=== PATIENT | female | born 1945 | race Caucasian/White ===

== ENCOUNTER 2019-02-11 16:24 | Emergency (ER) | payer MEDICAID ==
[~2019-02-11] VITALS: Ht 165.1 cm; Wt 93.4 kg
--- NOTE | 2019-02-11 16:51 | NUR ---
CP X 10 DAYS; ON AND OFF; PRESSURE-LIKE; RADIATES TO THE LEFT ARM. PT AAOX4, VSS, RR EVEN & UNLABORED. DENIES DIZZINESS, N/V, WEAKNESS, UPPER BACK PAIN @ THIS TIME. SEEN & EVAL'D BY DR. LAU. PLACED ON BRICK UNLOADER TENDER, SB. DAUGHTER @ BS & WILL CONT TO MONITOR.
[2019-02-11 17:06] LABS: BASOPHILS % (AUTO) 0.6 % (0.0-2.0); EOSINOPHILS % (AUTO) 3.4 % (0.0-6.0); HEMATOCRIT 39 % (33-45); HEMOGLOBIN 12.8 g/dL (11.5-14.8); LYMPHOCYTES # (AUTO) 3.1 /CMM (0.8-4.8); LYMPHOCYTES % (AUTO) 47.2 % (20.0-44.0); MEAN CORPUSCULAR HGB CONC 33 g/dl (31.0-36.0); MEAN CORPUSCULAR VOLUME 87 fL (82-100); MONOCYTES # (AUTO) 0.6 /CMM (0.1-1.30); MONOCYTES % (AUTO) 8.5 % (2.0-12.0); NEUTROPHILS # (AUTO) 2.7 /CMM (1.8-8.9); NEUTROPHILS % (AUTO) 40.3 % (43.0-81.0); PLATELET COUNT (AUTO) 204 /CMM (150-450); RED BLOOD CELL COUNT(AUTO) 4.41 MIL/uL (4.0-5.2); WHITE BLOOD COUNT (AUTO) 6.6 K/uL (4.3-11.0)
[2019-02-11 17:11] LABS: CARBON DIOXIDE 26 mmol/L (21-32); CHLORIDE 106 mmol/L (98-107); GLUCOSE 104 mg/dL (74-106); POTASSIUM 4.1 mmol/L (3.5-5.1); SODIUM SERUM 142 mmol/L (136-145); UREA NITROGEN, BLOOD 13 mg/dL (7-18)
[2019-02-11 17:54] VITALS: BP 116/87
--- NOTE | 2019-02-11 17:55 | NUR ---
Patient discharged to home in stable condition. Written and verbal after care instructions given. Patient verbalizes understanding of instruction. IV removed. Catheter intact and site benign. Pressure and 4x4 applied to site. No bleeding noted.
== END 2019-02-11 17:55 | disposition home or self-care (01) ==
LOC: ER 16:31
DX: R07.89 Other chest pain (principal); E78.5 Hyperlipidemia, unspecified
CPT/HCPCS: 36415; 71045-TC; 80048-TC; 84484-TC; 85025-TC

== ENCOUNTER 2019-03-29 19:27 | Inpatient (IN) | payer OTHER ==
[~2019-03-29] VITALS: Ht 162.6 cm; Wt 94.5 kg
--- NOTE | 2019-03-29 19:49 | NUR ---
1934: BIBDAUGHTER FROM HOME TO ER BED 8. MACEDONIAN SPEAKING WITH DAUGHTER TRANSLATING. AAOX4. NO RESP DISTRESS NOTED EVEN AND UNLABORED BREATHING. AMBULATORY W/O ASSIST. C/O L SIDED NUMBNESS AND HEADACHE. PT REPORTS THAT NUMBNESS STARTED 3 DAYS AGO. SHE REPORTS THAT SALIVA KEEPS DRIPPING ON THE L SIDE OF LIP AND CANT HOLD IT IN. HEAD ACHE IS REPORTED ON THE R SIDE. MD IS AT BEDSIDE FOR EVAL. UPON ASSESSING, NO VISUAL GAZE DEFICIT, REPORTS NO VISUAL DEFICIT, EVEN SMILE,NO NOTED DRIFT ON BOTH UPPER AND LOWER EXTREMETIES HOWEVER SENSATION ON THE LEFT SIDE IS LESS THAN THE RIGHT SIDE OF THE BODY. ORDERS RECEIVED, NOTED AND CARRIED OUT
[2019-03-29 19:55] LABS: BASOPHILS % (AUTO) 0.5 % (0.0-2.0); EOSINOPHILS % (AUTO) 4.2 % (0.0-6.0); HEMATOCRIT 39 % (33-45); HEMOGLOBIN 12.9 g/dL (11.5-14.8); LYMPHOCYTES # (AUTO) 3.1 /CMM (0.8-4.8); LYMPHOCYTES % (AUTO) 53.1 % (20.0-44.0); MEAN CORPUSCULAR HGB CONC 33 g/dl (31.0-36.0); MEAN CORPUSCULAR VOLUME 88 fL (82-100); MONOCYTES # (AUTO) 0.7 /CMM (0.1-1.30); MONOCYTES % (AUTO) 12.1 % (2.0-12.0); NEUTROPHILS # (AUTO) 1.8 /CMM (1.8-8.9); NEUTROPHILS % (AUTO) 30.1 % (43.0-81.0); PLATELET COUNT (AUTO) 205 /CMM (150-450); RED BLOOD CELL COUNT(AUTO) 4.45 MIL/uL (4.0-5.2); WHITE BLOOD COUNT (AUTO) 5.8 K/uL (4.3-11.0)
[2019-03-29] MEDS ORDERED: IV NS 0.9% 500 ML BAG IV ONE (20:00)
[2019-03-29 20:10] LABS: ALANINE AMINOTRANSFERASE 23 U/L (12-78); ALBUMIN 3.7 g/dL (3.4-5.0); ALKALINE PHOSPHATASE 83 U/L (46-116); ASPARTATE AMINOTRANSFERASE 21 U/L (15-37); BILIRUBIN,DIRECT 0.1 mg/dL (0.0-0.2); BILIRUBIN,TOTAL 0.4 mg/dL (0.2-1.0); CALCIUM, SERUM 9.5 mg/dL (8.5-10.1); CARBON DIOXIDE 26 mmol/L (21-32); CHLORIDE 106 mmol/L (98-107); CREATININE 0.9 mg/dL (0.6-1.3); GLUCOSE 110 mg/dL (74-106); POTASSIUM 4.2 mmol/L (3.5-5.1); SODIUM SERUM 141 mmol/L (136-145); TOTAL PROTEIN, SERUM 7.3 g/dL (6.4-8.2); UREA NITROGEN, BLOOD 11 mg/dL (7-18)
[2019-03-29] MEDS ORDERED: IOHEXOL-350 100 ML VIAL IV ONE (20:17)
[2019-03-29] MEDS ORDERED: CT SWABBABLE VALVE TRANS SET 1 EA INFUS.SET MC ONE (20:18)
[2019-03-29] MEDS ORDERED: IV NS 0.9% 250 ML IV ONE (20:18)
--- NOTE | 2019-03-29 20:24 | NUR ---
PT BROUGHT TO CT
[2019-03-29 20:46] LABS: CHOLESTEROL 184 mg/dL (<200); HDL CHOLESTEROL 52 mg/dL (40-60); LDL 109 mg/dL (0-99); TRIGLYCERIDES 115 mg/dL (30-150)
--- NOTE | 2019-03-29 21:40 | NUR ---
PT AMBULATED TO RESTROOM WITHOUT ASSISTANCE
--- NOTE | 2019-03-29 21:48 | NUR ---
SPOKE WITH [facility] NEPHROLOGY SOCIAL WORKER ([place]) [phone]. PT CAPITATED TO [facility]. WILL CALL BACK FOR MD TO
--- NOTE | 2019-03-29 21:50 | NUR ---
Patient is resting comfortably in bed with eyes closed. Easily aroused. VSS
[2019-03-29] MEDS ORDERED: ASPIRIN 325 MG TABLET PO ONE (22:00)
[2019-03-29] MEDS ORDERED: ASPIRIN 325 MG TABLET ONE (22:05)
--- NOTE | 2019-03-29 23:04 | NUR ---
BED ASSIGNMENT 313-2
--- NOTE | 2019-03-29 23:18 | NUR ---
GAVE REPORT TO MILLY IVY FOR JERAMY
[2019-03-29 23:40] VITALS: BP 141/74
--- NOTE | 2019-03-29 23:40 | NUR ---
PT TRANSFERED PER ACLS PROTOCOL.
[2019-03-29 23:50] VITALS: BP 141/74
--- NOTE | 2019-03-29 23:50 | NUR ---
formation fracturing operatoradmissions director notes Received Pt from ER nurse BIJU Uriarte. Pt arrived at the unit at 2335 with a gurney and ACLS protocol. Pt is 73 YO Female with a diagnose of CVA r/o by Dr. Hernandez. Pt is alert and oriented x3. Pt speaks Austrian and able to make needs known. Respiration is normal. No Nausea or vomiting. Pt is complaining of headache. VS is taken. Tele monitored showed sinus tammy 58. Blood sugar is 91. Pt has left upper and lower weakness. Pt is able to ambulate with administrative services assistant. Skin assessment is done and performed and documented under initial admission. Pt refused skin pictures taken. Pt's daughter Ananya is aware and informed. Pt's belongings was checked by DANIEL Jenkins. Robinson and educate Pt to the room, and the use of call light button for assistance. Pt's verbalize understanding. Admission orders is received from Dr. Hernandez. Orders carried out. Instructed to call. Safety precautions is maintained. Bed at low position, brakes locked, side rails upX2 and call light is within reach. Will continue to monitor.
--- NOTE | 2019-03-29 23:50 | NUR ---
household appliances service technician notes Pt passed nursing swallow eval. Pt tolerated activity well. Charge nurse BIJU Santos is aware and informed. Will continue to monitor.
[2019-03-30] MEDS ORDERED: HYDROCODONE/APAP 5/325MG 1 EACH TABLET PO PRN
[2019-03-30] MEDS ORDERED: MAGNESIUM HYDROXIDE 30 ML UDC PO PRN
[2019-03-30] MEDS ORDERED: ONDANSETRON HCL/PF 4 MG/2 ML VIAL IVP PRN
[2019-03-30] MEDS ORDERED: ZOLPIDEM TARTRATE 5 MG TABLET PO PRN
[2019-03-30] MEDS ORDERED: Z GUARD REMEDY 2 OZ OINT TP PRN
[2019-03-30] MEDS ORDERED: MAG HYDROX/AL HYDROX/SIMETH 30 ML UDC PO PRN
[2019-03-30] MEDS ORDERED: ACETAMINOPHEN 325 MG TABLET ONE (00:09)
[2019-03-30] MEDS: BLOOD SUGAR DIAGNOSTIC 1 EACH STRIP IN SCH ×7 (00:11→21:14)
[2019-03-30] MEDS: ACETAMINOPHEN 325 MG TABLET PO PRN ×3 (00:11→21:16)
--- NOTE | 2019-03-30 00:14 | NUR ---
rn staff notes Pt is complaining of pain. Administered Tylenol 325mg/2 tabs/PO as ordered for headache per Pt request. Called [facility] to verify the meds, The [facility] stated the computer system is down. Charge nurse BIJU Santos override the medication because our system is down. Instructed to call. Will continue to monitor.
[2019-03-30 00:20] LABS: CALCIUM, SERUM 8.8 mg/dL (8.5-10.1); POTASSIUM 4.4 mmol/L (3.5-5.1)
[2019-03-30 00:32] LABS: ALBUMIN 3.6 g/dL (3.4-5.0); BILIRUBIN,TOTAL 0.4 mg/dL (0.2-1.0); TOTAL PROTEIN, SERUM 6.8 g/dL (6.4-8.2)
[2019-03-30 00:33] LABS: THYROID STIMULATING HORMONE 2.229 uIU/mL (0.358-3.74)
[2019-03-30 04:00] VITALS: BP 126/69
[2019-03-30 05:39] LABS: APPEARANCE,URINE CLEAR (CLEAR); BILIRUBIN,URINE NEGATIVE (NEGATIVE); BLOOD, URINE NEGATIVE Ery/uL (NEGATIVE); COLOR,URINE YELLOW (YELLOW); KETONES,URINE NEGATIVE (NEGATIVE); LEUKOCYTE ESTERASE ,URINE TRACE (NEGATIVE); NITRITE, URINE NEGATIVE (NEGATIVE); PROTEIN,URINE NEGATIVE (NEGATIVE); UGLUCOSE NEGATIVE (NEGATIVE); UROBILINOGEN,URINE 0.2 EU/dL (0.2)
[2019-03-30 05:50] LABS: BACTERIA,URINE Few /HPF (None Seen); RBC,URINE 0-2 /HPF (0-2); SQUAMOUS EPITHELIAL CELL,UR Few /HPF (None Seen)
--- NOTE | 2019-03-30 06:50 | NUR ---
contract paralegal closing notes Pt is resting in bed comfortably. Awaken easily. Respiration is normal in room air. No SOB. No S/S of distress noted. IV sites at RFA # 20 is clean, intact, patent and SL. VS is stable. Tele monitor showed sinus rhytm 60. Kept Pt clean, dry, warm and comfortable. Instructed to call. Safety precautions is maintained. Bed at low position, brakes locked, side rails upX2 and call light is witihn reach. Will endorse to morning nurse for JERAMY.
[2019-03-30 07:13] LABS: BASOPHILS % (AUTO) 0.4 % (0.0-2.0); EOSINOPHILS % (AUTO) 4.3 % (0.0-6.0); HEMATOCRIT 40 % (33-45); HEMOGLOBIN 13.3 g/dL (11.5-14.8); MEAN CORPUSCULAR HGB CONC 33 g/dl (31.0-36.0); MEAN CORPUSCULAR VOLUME 88 fL (82-100); MONOCYTES # (AUTO) 0.6 /CMM (0.1-1.30); MONOCYTES % (AUTO) 10.6 % (2.0-12.0); NEUTROPHILS # (AUTO) 1.9 /CMM (1.8-8.9); NEUTROPHILS % (AUTO) 32.7 % (43.0-81.0); PLATELET COUNT (AUTO) 207 /CMM (150-450); RED BLOOD CELL COUNT(AUTO) 4.62 MIL/uL (4.0-5.2); WHITE BLOOD COUNT (AUTO) 5.7 K/uL (4.3-11.0)
--- NOTE | 2019-03-30 07:39 | NUR ---
RN Notes Patient resting in bed, semi fowlers position; No facial drooping noted; Patient able to follow commands; Slight weakness on left side, but patient is able to move extremities; Call light within reach.
[2019-03-30 07:45] LABS: CREATININE 1.1 mg/dL (0.6-1.3); MAGNESIUM 1.9 mg/dL (1.8-2.4); PHOSPHORUS 4.1 mg/dL (2.5-4.9); POTASSIUM 4.2 mmol/L (3.5-5.1)
[2019-03-30 08:00] VITALS: BP 135/74
[2019-03-30] MEDS: ASPIRIN EC 325 MG TABLET.DR PO SCH (08:55)
--- NOTE | 2019-03-30 11:00 | NUR ---
RN Notes Patient unable to remember list of medications currently taking at home; Called daughter, Marichuy, to bring list of medications when she visits.
--- NOTE | 2019-03-30 11:24 | NUR ---
RN Notes Patient sent down for MRI w/o contrast with transporter.
--- NOTE | 2019-03-30 12:29 | NUR ---
RN NOTES PT RETURNED TO UNIT VIA WHEELCHAIR S/P MRI OF BRAIN W/O CONTRAST.
--- NOTE | 2019-03-30 15:24 | NUR ---
RN Notes Per Dr. Delgado, patient prescribed VTE prophylaxis with Lovenox 40mg SQ Q12h; Orders acknowledged.
--- NOTE | 2019-03-30 15:41 | NUR ---
RN Notes Patient's LDL cholesterol elevated at 109; Atorvastatin 20mg daily ordered by Dr. Delgado.
[2019-03-30 16:00] VITALS: BP 137/73
[2019-03-30] MEDS ORDERED: ENOXAPARIN SODIUM 40 MG/0.4 ML DISP.SYRIN SQ SCH (16:00)
--- NOTE | 2019-03-30 18:34 | NUR ---
MS RN CLOSING NOTES PATIENT RESTING IN BED. NO COMPLAINTS OF PAIN. PATIENT TOLERATED DINNER WELL, NO SIGNS OF ASPIRATION OR RESPIRATORY DISTRESS. PATIENT HAS SCD PUMP ON. DAUGHTER, TOMI, HAS NOT BROUGHT HOME MEDICATION LIST. WILL ENDORSE TO RAMP SERVICE AGENT NURSE TO FOLLOW UP.
--- NOTE | 2019-03-30 18:58 | NUR ---
RN NOTES PATIENT COMPLAINING OF COUGH, NONPRODUCTIVE. , DR. BAJWA, MADE AWARE. ROBITUSSIN DM 5MG PO Q4H PRESCRIBED.
[2019-03-30] MEDS: GUAIFENESIN/D-METHORPHAN HB 5 ML UDC PO PRN (19:20)
--- NOTE | 2019-03-30 19:20 | NUR ---
RN NOTES: RECEIVED LYING COMFORTABLY IN BED IN HIGH FOWLERS POSITION, ON RA-94%, A/OX3, EMIRATI SPEAKING, ABLE TO COMMUNICATE WITH LITTLE BELARUSIAN, ABLE TO MAKE NEEDS KNOWN, ORIENTED TO UNIT AND STAFF, ON TELE MONITOR SR-66, CONTINENT B/B, BRP WITH ASSIST, IV CANNULA ON RFA G#20 SL, PER ENDORSEMENT PATIENT HAVE ON AND OFF COUGH AND RN OBTAIN ROBITUSSIN ORDER FROM PMD AND SHE WILL GIVE THE FIRST DOSE, ALSO LOVENOX WAS ALREADY GIVEN. KEPT ON CLOSE WATCH.
--- NOTE | 2019-03-30 20:00 | NUR ---
RN NOTES: -DAUGHTER DWAYNE CALLED, EXPLAINED TO HER REGARDING THE STROKE SATISFACTION SURVEY, SHE SAID SHE IS DRIVING RIGHT NOW AND SHE PREFER TO ANSWER IT TOMORROW WHEN SHE COME TO SEE HER MOTHER, SHE WONT BE ABLE TO COME AND VISIT HER TONIGHT. -KEPT ON COMFORTABLE POSITION, CALL LIGHT KEPT WITHIN EASY REACH.
[2019-03-30 20:21] VITALS: BP 141/77
--- NOTE | 2019-03-30 21:25 | NUR ---
RN NOTES: BLOOD SUGAR CHECKED-93, NO INSULIN PER SCALE, SHE COMPLAINED SHE HAS MILD HEADACHE AND SHE WANTS TYLENOL, BP-138/75, GIVEN, NON PHARMACOLOGIC INTERVENTION RENDERED, DIM LIT, SLIGHTLY COOL ROOM TEMPERATURE, BACK RUB AND GIVEN WATER. -WHILE POSITIONING HER COMFORTABLY IN BED SHE IS REMOVING HER DVT PUMP, WHEN RN PUT IT BACK SHE SAID "NO, NO, NO SLEEP " SHE WAS EXPRESSING HER SELF IN ACTION THAT IT MAKE SOUND AND SHE DONT WANT IT,IT COMPRESS HER LOWER LEG, RN TRY TO EXPLAIN SHE NEEDS IT BUT SHE INSIST, NOT TO PUT IT BACK.WILL CONTINUE TO OFFER.
[2019-03-30 22:00] VITALS: BP 141/77
[2019-03-30] MEDS ORDERED: ATORVASTATIN 10 MG TABLET PO SCH (22:00)
[2019-03-31] VITALS: BP 148/77
[2019-03-31 04:00] VITALS: BP 131/49
--- NOTE | 2019-03-31 05:00 | NUR ---
RN NOTES: SLEEP WELL IN THE NIGHT. NO PAIN OR DISCOMFORT.
[2019-03-31] MEDS: BLOOD SUGAR DIAGNOSTIC 1 EACH STRIP IN SCH ×3 (07:11→17:15)
--- NOTE | 2019-03-31 07:21 | NUR ---
MACHINES TECHNICIAN OPENING NOTES: RECEIVED PATIENT AWAKE IN BED IN NO ACUTE SIGNS OF DISTRESS. HOB ELEVATED. A/O X3. VERBALLY RESPONSIVE, DENIES PAIN OR ANY DISCOMFORTS AT THIS TIME. ON ROOM AIR, BREATHING EVEN AND UNLABORED. ON TELE MONITORING WITH CURRENT READING OF SB WITH HR OF 56, NO C/O CARDIAC DISTRESS VOICED AT THIS TIME. IV ACCESS ON RIGHT FA #20G INTACT, PATENT AND FLUSHING WELL. SAFETY MEASURES ARE IN PLACE. BED IS IN LOW, LOCKED POSITION WITH SIDE RAILS UP X2. CALL LIGHT WITHIN REACH. WILL CONTINUE TO MONITOR ACCORDINGLY.
--- NOTE | 2019-03-31 07:39 | NUR ---
RN NOTES: BLOOD SUGAR CHECK-90, NO INSULIN PER SCALE, NO COMPLAINTS IN THE NIGHT, NEEDS ATTENDED, ON SR-66, ENDORSED FOR CONTINUITY OF CARE.
[2019-03-31 08:00] VITALS: BP 144/71
[2019-03-31] MEDS: ASPIRIN EC 325 MG TABLET.DR PO SCH (08:07)
[2019-03-31] MEDS: GUAIFENESIN/D-METHORPHAN HB 5 ML UDC PO PRN (08:09)
[2019-03-31 12:00] VITALS: BP 119/68
--- NOTE | 2019-03-31 12:46 | NUR ---
RN NOTES PT ON LOVENOX 40MG/0.4ML SQ ONCE A DAY, NO ACTIVE OR S/S OF BLEEDING NOTED. WILL CONTINUE TO MONITOR
[2019-03-31 16:00] VITALS: BP 135/82
[2019-03-31] MEDS ORDERED: ATOR10TA PO (16:22)
[2019-03-31] MEDS ORDERED: ASPI-869 PO (16:22)
[2019-03-31] MEDS: ACETAMINOPHEN 325 MG TABLET PO PRN (16:27)
--- NOTE | 2019-03-31 16:28 | NUR ---
RN NOTES PT C/O MILD HEADACHE. PRN TYLENOL 650MG PO GIVEN AT 1627. WILL CONTINUE TO MONITOR PT.
--- NOTE | 2019-03-31 17:30 | NUR ---
RN DISCHARGED NOTES PT DISCHARGED HOME IN STABLE CONDITION. A/O X4. ABLE TO MAKE NEEDS AND CONCERNS KNOWN. V/S TAKEN AND RECORDED. SKIN IS INTACT. ALL BELONGINGS ACCOUNTED FOR AND SIGNED FORM. IV ACCESS ON LFA REMOVED WITH NO BLEEDING NOTED, DRY DRESSING APPLIED AND TAPED. NAME ARMBAND REMOVED. PT LEFT UNIT VIA WHEELCHAIR @ 1720 ACCOMPANIED BY ME TO [facility] WHERE DAUGHTER NAMED NIALL IS WAITING. HEALTH TEACHINGS/DISCHARGE INSTRUCTIONS GIVEN TO PT AND DAUGHTER AT THE LOB (DAUGHTER UNABLE TO COME UP TOO UNIT BECAUSE SHE WAS WITH HER 2 SMALL CHILDREN), BOTH VERBALIZED UNDERSTANDING. MD AND CHARGE NURSE AWARE OF DISCHARGE.
[2019-03-31] MEDS ORDERED: ATORVASTATIN 10 MG TABLET PO SCH (22:00)
== END 2019-03-31 17:20 | disposition home or self-care (01) | DRG 47 ==
LOC: ER 19:29 → TELE 23:07
PROVIDERS: ADMIT Family Medicine; ATTEND Nurse Practitioner Acute Care
DX: G45.9 Transient cerebral ischemic attack, unspecified (principal); D72.820 Lymphocytosis (symptomatic); E78.5 Hyperlipidemia, unspecified; R73.9 Hyperglycemia, unspecified; I25.10 Atherosclerotic heart disease of native coronary artery without angina pectoris; M17.0 Bilateral primary osteoarthritis of knee; R29.702 NIHSS score 2
CPT/HCPCS: 36415; 70496-TC; 70498-TC; 70551-TC; 71045-TC; 80048-TC; 80053-TC; 80061-TC; 80076-TC; 80305; 81000-TC; 82962-TC; 83735-TC; 83880; 84100-TC; 84443-TC; 84484-TC; 85025-TC; 85652-TC; 85730-TC; 87081-TC; 87086-TC; 92611-TC; 97116-TC; 97530-TC; 97535-TC; G0378; J1650; J7040; J7050; Q9967

== ENCOUNTER 2020-01-25 10:09 | Emergency (ER) | payer OTHER ==
[~2020-01-25] VITALS: Ht 162.6 cm; Wt 90.7 kg
[~2020-01-25 10:09] MED LIST: ASPI-869 PO; ATOR10TA PO
--- NOTE | 2020-01-25 10:20 | NUR ---
ER BED 2 BIBA WITH CHIEF COMPLAINT OF LLQ ABD PAIN. VS CHECKED. PT HOOKED ON MONITOR. AWAITING TO BE SEEN BY
[2020-01-25] MEDS ORDERED: MORPHINE SULFATE INJ 2 MG/ML DISP.SYRIN IV ONE (10:30)
[2020-01-25] MEDS ORDERED: IV NS 0.9% 1,000 ML BAG IV ONE (10:30)
[2020-01-25] MEDS ORDERED: ONDANSETRON HCL/PF 4 MG/2 ML VIAL IVP ONE (10:30)
--- NOTE | 2020-01-25 10:30 | NUR ---
IV/LAB DRAW IV INSERTED ON R AC. NO BLEEDING. INTACT AND PATENT AND FLUSHING WELL. LABS DRAWN
[2020-01-25] MEDS ORDERED: ONDANSETRON HCL/PF 4 MG/2 ML VIAL ONE (10:39)
[2020-01-25] MEDS ORDERED: MORPHINE SULFATE INJ 2 MG/ML DISP.SYRIN ONE (10:40)
[2020-01-25] MEDS ORDERED: MORPHINE SULFATE INJ 4 MG/ML DISP.SYRIN ONE (10:45)
[2020-01-25 10:48] LABS: BASOPHILS % (AUTO) 0.5 % (0.0-2.0); EOSINOPHILS % (AUTO) 1.2 % (0.0-6.0); HEMATOCRIT 41 % (33-45); HEMOGLOBIN 13.1 g/dL (11.5-14.8); LYMPHOCYTES # (AUTO) 2.2 /CMM (0.8-4.8); LYMPHOCYTES % (AUTO) 24.1 % (20.0-44.0); MEAN CORPUSCULAR HGB CONC 32 g/dl (31.0-36.0); MEAN CORPUSCULAR VOLUME 90 fL (82-100); MONOCYTES # (AUTO) 0.7 /CMM (0.1-1.30); MONOCYTES % (AUTO) 7.1 % (2.0-12.0); NEUTROPHILS # (AUTO) 6.2 /CMM (1.8-8.9); NEUTROPHILS % (AUTO) 67.1 % (43.0-81.0); PLATELET COUNT (AUTO) 202 /CMM (150-450); RED BLOOD CELL COUNT(AUTO) 4.49 MIL/uL (4.0-5.2); WHITE BLOOD COUNT (AUTO) 9.3 K/uL (4.3-11.0)
--- NOTE | 2020-01-25 10:50 | NUR ---
P/U FOR CT OF ABD
[2020-01-25 10:57] LABS: APPEARANCE,URINE Clear (CLEAR); BILIRUBIN,URINE Negative (NEGATIVE); BLOOD, URINE Negative Ery/uL (NEGATIVE); COLOR,URINE Yellow (YELLOW); KETONES,URINE Negative (NEGATIVE); LEUKOCYTE ESTERASE ,URINE Small (NEGATIVE); NITRITE, URINE Negative (NEGATIVE); PH,URINE 5.5 (5.0-8.0); PROTEIN,URINE Negative (NEGATIVE); UGLUCOSE Negative (NEGATIVE); UROBILINOGEN,URINE 0.2 EU/dL (0.2)
[2020-01-25 10:58] LABS: CALCIUM, SERUM 8.7 mg/dL (8.5-10.1); CREATININE 1.2 mg/dL (0.6-1.3); POTASSIUM 3.3 mmol/L (3.5-5.1)
[2020-01-25 11:04] LABS: ALBUMIN 3.8 g/dL (3.4-5.0); BILIRUBIN,DIRECT 0.2 mg/dL (0.0-0.2); BILIRUBIN,TOTAL 0.6 mg/dL (0.2-1.0)
[2020-01-25 11:16] LABS: BACTERIA,URINE 1+ /HPF (None Seen); MUCUS,URINE Few /LPF (None Seen); SQUAMOUS EPITHELIAL CELL,UR Moderate /HPF (None Seen); URINE AMORPHOUS URATE Few /HPF (None Seen)
--- NOTE | 2020-01-25 12:38 | NUR ---
D/C HOME Patient discharged to home in stable condition. Written and verbal after care instructions given to raudel iglesias. Patient and daughter verbalizes understanding of instruction. prescription given to pt IV removed. Catheter intact and site benign. Pressure and 4x4 applied to site. No bleeding noted. pt was picked up by daughter
[2020-01-25 12:40] VITALS: BP 109/88
== END 2020-01-25 12:37 | disposition home or self-care (01) ==
LOC: ER 10:12
DX: N39.0 Urinary tract infection, site not specified (principal); E78.5 Hyperlipidemia, unspecified; Z79.899 Other long term (current) drug therapy; Z79.82 Long term (current) use of aspirin
CPT/HCPCS: 36415; 74176; 80048; 80076; 81001; 83690; 85025; 87086; 96361; 96374; 96375; 99284; J2270; J2405; J7030; 81000-TC

== ENCOUNTER 2021-05-23 14:17 | Emergency (ER) | payer OTHER ==
[~2021-05-23] VITALS: Ht 170.2 cm; Wt 82.6 kg
--- NOTE | 2021-05-23 14:31 | NUR ---
TO ER BED 5, BIB DAUGHTER C/O BACK PAIN, COUGH AND CONGESTION X 1 WEEK. DENIES SOB, AAOX3, BREATHING EVEN AND NON LABORED, SATS AT 97% AT ROOM AIR, AWAITING MD ORDERS
[2021-05-23] MEDS ORDERED: IBUPROFEN 600 MG TABLET ONE (15:00)
[2021-05-23] MEDS ORDERED: IBUPROFEN 600 MG TABLET PO ONE (15:00)
[2021-05-23] MEDS ORDERED: ACETAMINOPHEN ES 500 MG TABLET ONE (15:00)
[2021-05-23] MEDS ORDERED: ACETAMINOPHEN ES 500 MG TABLET PO ONE (15:00)
--- NOTE | 2021-05-23 15:08 | NUR ---
covid antigen swab done and sent to the lab
[2021-05-23 15:45] LABS: BASOPHILS % (AUTO) 0.2 % (0.0-2.0); EOSINOPHILS % (AUTO) 1.9 % (0.0-6.0); HEMATOCRIT 41 % (33-45); HEMOGLOBIN 13.4 g/dL (11.5-14.8); LYMPHOCYTES # (AUTO) 2.7 K/uL (0.8-4.8); LYMPHOCYTES % (AUTO) 68.7 % (20.0-44.0); MEAN CORPUSCULAR HGB CONC 33 g/dl (31.0-36.0); MEAN CORPUSCULAR VOLUME 89 fL (82-100); MONOCYTES # (AUTO) 0.4 K/uL (0.1-1.30); MONOCYTES % (AUTO) 9.5 % (2.0-12.0); NEUTROPHILS # (AUTO) 0.8 K/uL (1.8-8.9); NEUTROPHILS % (AUTO) 19.7 % (43.0-81.0); PLATELET COUNT (AUTO) 192 K/uL (150-450); RED BLOOD CELL COUNT(AUTO) 4.58 MIL/uL (4.0-5.2); WHITE BLOOD COUNT (AUTO) 3.9 K/uL (4.3-11.0)
[2021-05-23 15:57] LABS: CALCIUM, SERUM 8.7 mg/dL (8.5-10.1); POTASSIUM 3.9 mmol/L (3.5-5.1)
--- NOTE | 2021-05-23 16:21 | NUR ---
COVID POSITIVE RESULT INFORMED BY LAB
[2021-05-23] MEDS ORDERED: IBUP-1957 PO (16:22)
[2021-05-23 16:36] VITALS: BP 123/67
--- NOTE | 2021-05-23 16:36 | NUR ---
The patient is alert and oriented x4. Denies pain. In room air and denies SOB. Respiration regular and unlabored. IV removed. Catheter intact and site benign. Pressure and 4x4 applied to site. No bleeding noted.Patient discharged to home in stable condition. Written and verbal after care instructions given. Patient verbalizes understanding of instruction.
== END 2021-05-23 16:37 | disposition home or self-care (01) ==
LOC: ER 14:19
DX: U07.1 COVID-19 (principal); I10 Essential (primary) hypertension; E78.5 Hyperlipidemia, unspecified; Z98.890 Other specified postprocedural states; Z79.899 Other long term (current) drug therapy; Z79.82 Long term (current) use of aspirin
CPT/HCPCS: 36415; 71045; 80048; 85025; 87426; 93005; 99285; C9803

== ENCOUNTER 2021-06-07 17:06 | Emergency (ER) | payer OTHER ==
[~2021-06-07] VITALS: Ht 170.2 cm; Wt 83.9 kg
[~2021-06-07 17:06] MED LIST changes: +IBUP-1957 PO
--- NOTE | 2021-06-07 17:06 | NUR ---
PT BIB DAUGHTER FROM HOME C/O CHEST PAIN AND FATIGUE. COVID POSITIVE 05/23/21. PT IS AAOX4 SWEDISH SPEAKING ONLY, NOT IN RESPIRATORY DISTRESS, V/S STABLE, KEPT RESTED AND COMFORTABLE. WILL CONTINUE TO MONITOR.
--- NOTE | 2021-06-07 17:37 | NUR ---
SEEN AND EXAMINED BY .
--- NOTE | 2021-06-07 17:55 | NUR ---
IV LINE ESTABLISHED BLOOD DRAWN AND SENT TO LAB.
[2021-06-07 18:18] LABS: BASOPHILS % (AUTO) 0.4 % (0.0-2.0); EOSINOPHILS % (AUTO) 2.2 % (0.0-6.0); HEMATOCRIT 38 % (33-45); HEMOGLOBIN 12.6 g/dL (11.5-14.8); LYMPHOCYTES % (AUTO) 41.9 % (20.0-44.0); MEAN CORPUSCULAR HGB CONC 33 g/dl (31.0-36.0); MEAN CORPUSCULAR VOLUME 88 fL (82-100); MONOCYTES # (AUTO) 0.6 K/uL (0.1-1.30); MONOCYTES % (AUTO) 8.4 % (2.0-12.0); NEUTROPHILS # (AUTO) 3.4 K/uL (1.8-8.9); NEUTROPHILS % (AUTO) 47.1 % (43.0-81.0); PLATELET COUNT (AUTO) 181 K/uL (150-450); RED BLOOD CELL COUNT(AUTO) 4.29 MIL/uL (4.0-5.2); WHITE BLOOD COUNT (AUTO) 7.2 K/uL (4.3-11.0)
[2021-06-07 18:41] LABS: CARBON DIOXIDE 23 mmol/L (21-32); CHLORIDE 107 mmol/L (98-107); GLUCOSE 117 mg/dL (74-106); POTASSIUM 4.1 mmol/L (3.5-5.1); SODIUM SERUM 140 mmol/L (136-145); UREA NITROGEN, BLOOD 17 mg/dL (7-18)
[2021-06-07 19:52] LABS: BILIRUBIN,URINE NEGATIVE (NEGATIVE); COLOR,URINE YELLOW (YELLOW); LEUKOCYTE ESTERASE ,URINE SMALL (NEGATIVE); NITRITE, URINE NEGATIVE (NEGATIVE); PROTEIN,URINE NEGATIVE (NEGATIVE); UGLUCOSE NEGATIVE (NEGATIVE); UROBILINOGEN,URINE 0.2 EU/dL (0.2)
[2021-06-07 20:10] LABS: BACTERIA,URINE RARE /HPF (None Seen); RBC,URINE 0-2 /HPF (0-2); SQUAMOUS EPITHELIAL CELL,UR 0-2 /HPF (None Seen); URINE AMORPHOUS PHOSPHATES Few /HPF (None Seen)
[2021-06-07] MEDS ORDERED: ONDANSETRON HCL/PF 4 MG/2 ML VIAL ONE (20:25)
[2021-06-07] MEDS ORDERED: ACETAMINOPHEN ES 500 MG TABLET ONE (20:25)
[2021-06-07] MEDS ORDERED: CEFTRIAXONE 1GM BAG (ER ONLY) 50 ML IV ONE (20:25)
[2021-06-07] MEDS ORDERED: ACETAMINOPHEN ES 500 MG TABLET PO ONE (20:30)
[2021-06-07] MEDS ORDERED: CEFTRIAXONE 1GM BAG (ER ONLY) 1 GM/50 ML PIGGYBACK IV ONE (20:30)
[2021-06-07] MEDS ORDERED: ONDANSETRON HCL/PF 4 MG/2 ML VIAL IVP ONE (20:30)
[2021-06-07] MEDS ORDERED: IV NS 0.9% 500 ML BAG IV ONE (20:30)
[2021-06-07] MEDS ORDERED: AMOX-430 PO (22:12)
--- NOTE | 2021-06-07 22:41 | NUR ---
Patient discharged to home in stable condition. Written and verbal after care instructions given. Patient verbalizes understanding of instruction. IV removed. Catheter intact and site benign. Pressure and 4x4 applied to site. No bleeding noted. PT ambulatory with a steady gait
[2021-06-07 23:18] VITALS: BP 144/74
== END 2021-06-07 22:20 | disposition home or self-care (01) ==
LOC: ER 17:07
DX: U07.1 COVID-19 (principal); J12.82 Pneumonia due to coronavirus disease 2019; N39.0 Urinary tract infection, site not specified; I10 Essential (primary) hypertension; E78.5 Hyperlipidemia, unspecified; Z79.1 Long term (current) use of non-steroidal anti-inflammatories (NSAID); Z79.82 Long term (current) use of aspirin; Z79.899 Other long term (current) drug therapy
CPT/HCPCS: 36415; 71045; 80048; 81001; 82550; 84484; 85025; 87086; 93005; 96365; 96375; 99285; J0696; J2405

== ENCOUNTER 2022-07-12 09:58 | Emergency (ER) | payer MEDICARE, OTHER ==
[~2022-07-12] VITALS: Ht 162.6 cm; Wt 104.8 kg
[~2022-07-12 09:58] MED LIST changes: +AMOX-430 PO
--- NOTE | 2022-07-12 10:20 | NUR ---
PT WALKED INTO ER WITH DAUGHTER C/O RIGHT KNEE AND RIGHT HIP PAIN. BRUISING NOTED ON RIGHT HIP AREA S/P TRIP AND FALL 2 DAYS AGO. PT PLACED IN BED AND MONITOR. AWAITING MD ORDERS.
--- NOTE | 2022-07-12 10:25 | NUR ---
DR. LACY AT BEDSIDE FOR EVAL. PT ALSO C/O HEAD PAIN.
--- NOTE | 2022-07-12 10:34 | NUR ---
XRAY AT BEDSIDE.
--- NOTE | 2022-07-12 11:15 | NUR ---
PT RETURNED FROM CT VIA [facility]
--- NOTE | 2022-07-12 11:46 | NUR ---
Patient discharged to home in stable condition. Written and verbal after care instructions given. Patient verbalizes understanding of instruction.
[2022-07-12 11:47] VITALS: BP 134/71
== END 2022-07-12 11:49 | disposition home or self-care (01) ==
LOC: ER 10:05
DX: S80.11XA Contusion of right lower leg, initial encounter (principal); I10 Essential (primary) hypertension; E78.5 Hyperlipidemia, unspecified; Z98.890 Other specified postprocedural states; Z79.899 Other long term (current) drug therapy; Z79.82 Long term (current) use of aspirin; W18.30XA Fall on same level, unspecified, initial encounter; Y93.89 Activity, other specified; Y92.89 Other specified places as the place of occurrence of the external cause; Y99.8 Other external cause status
CPT/HCPCS: 70450-TC; 72125-TC; 72170-TC; 73502; 73564-TC